=== PATIENT | female | born 1985 | race Asian ===

== ENCOUNTER 2022-06-18 21:03 | Emergency (ER) | payer MEDICARE, BC, OTHER ==
[~2022-06-18] VITALS: Ht 149.9 cm; Wt 53.0 kg
[~2022-06-18 21:03] MED LIST: AURYXIA210 MG PO; CALC.25 PO; CINA30 PO; Calcium Carbon500 MG PO; IRBESARTAN300 M3 PO; MAGNESIUM OXID500 MG PO; METO50 PO; Mirapex0.125 MG PO; SODPOL15SA PO
[2022-06-18 21:56] LABS: BASOPHILS ABSOLUTE AUTO 0.04 K/mm3 (0.00-0.23); BASOPHILS PERCENT AUTO 0 % (0-2); EOSINOPHILS ABSOLUTE AUTO 0.41 K/mm3 (0.00-0.68); EOSINOPHILS PERCENT AUTO 3 % (0-6); Hematocrit 31.4 % (33.0-51.0); Hemoglobin 10.3 g/dL (11.5-16.0); IMMATURE GRAN ABSOLUTE AUTO 0.09 K/mm3 (0.00-0.10); IMMATURE GRAN PERCENT AUTO 1 % (0-1); LYMPHOCYTES ABSOLUTE AUTO 1.65 K/mm3 (0.84-5.20); LYMPHOCYTES PERCENT AUTO 12 % (21-46); MONOCYTES ABSOLUTE AUTO 0.91 K/mm3 (0.16-1.47); MONOCYTES PERCENT AUTO 6 % (4-13); Mean Corpuscular HGB 32.5 pg (26.0-34.0); Mean Corpuscular HGB Conc 32.8 g/dL (31.5-36.5); Mean Corpuscular Volume 99 fL (80-100); Mean Platelet Volume 9.2 fL (9.1-12.4); NEUTROPHILS PERCENT AUTO 78 % (41-73); Platelet Count 375 K/mm3 (150-400); RDW Coefficient Variation 12.8 % (11.7-14.2); RDW Standard Deviation 45.7 fL (35.1-46.3); Red Blood Cell Count 3.17 M/mm3 (3.80-5.20)
[2022-06-18 22:26] LABS: Albumin, Blood 3.4 g/dL (3.4-5.0); Albumin/Globulin Ratio 0.7 (0.8-1.8); Bilirubin, Total 0.5 mg/dL (0.1-1.0); Bun/Creatinine Ratio 3.9 (12.0-20.0); Calcium, Blood 7.8 mg/dL (8.5-10.1); Creatinine, Blood 8.29 mg/dL (0.40-1.00); Globulin, Blood 5.2 g/dL (2.2-4.0); Total Protein, Blood 8.6 g/dL (6.4-8.2)
[2022-06-19] MEDS ORDERED: ONDA4ODT MM (02:55)
== END 2022-06-19 03:20 | disposition home or self-care (01) ==
LOC: ER 21:03
PROVIDERS: Student in an Organized Health Care Education/Training Program
DX: R19.7 Diarrhea, unspecified (principal); R11.2 Nausea with vomiting, unspecified; R10.10 Upper abdominal pain, unspecified; I12.0 Hypertensive chronic kidney disease with stage 5 chronic kidney disease or end stage renal disease; N18.6 End stage renal disease; D63.1 Anemia in chronic kidney disease; Z88.1 Allergy status to other antibiotic agents; Z88.8 Allergy status to other drugs, medicaments and biological substances; Z91.048 Other nonmedicinal substance allergy status; Z79.899 Other long term (current) drug therapy; Z99.2 Dependence on renal dialysis; D72.829 Elevated white blood cell count, unspecified
CPT/HCPCS: 36415; 80053; 83690; 85025